=== PATIENT | female | born 1950 | race Caucasian/White ===

== ENCOUNTER → 2017-01-17 | Outpatient (CLI) | payer MEDICAID | LOC: CIMAGING 10:59 | PROVIDERS: ATTEND Internal Medicine | DX: Z12.31 Encounter for screening mammogram for malignant neoplasm of breast (principal); Z85.3 Personal history of malignant neoplasm of breast | CPT/HCPCS: G0202 ==

== ENCOUNTER 2017-04-20 13:39 | Emergency (ER) | payer OTHER, MEDICAID ==
[2017-04-20] MEDS ORDERED: ASPIRIN 81 MG CHEWABLE TAB PO ONE (13:47)
--- NOTE | 2017-04-20 13:54 | CPEKG ---
Heart Rate: 68 RR Interval: 882 P-R Interval: 156 QRSD Interval: 86 QT Interval: 392 QTC Interval: 417 P [place]: 44 QRS [place]: 39 T Wave [place]: 23 EKG Severity - NORMAL ECG - EKG Impression: SINUS RHYTHM Electronically Signed By: Shawn Segura 20-Apr-2017 15:20:40
[2017-04-20 13:58] VITALS: TEMP 97.9
[2017-04-20 14:21] LABS: % IMMATURE GRANULYOCYTES 0.1 % (0.0-1.1); ABSOLUTE IMMATURE GRANULOCYTES 0.01 10^3/uL (0.00-0.10); ADD DIFF? NO; ADD MORPH? NO; ADD SCAN? NO; ATYPICAL LYMPHOCYTE FLAG 0 (0-99); FRAGMENT RBC FLAG 0 (0-99); HEMOGLOBIN 13.5 g/dL (12.6-16.3); LEFT SHIFT FLG 0 (0-99); LIPEMIA HEMOLYSIS FLAG 90 (0-99); MEAN CELL HEMOGLOBIN CONCENTR. 33.8 g/dL (32.4-36.7); MEAN CELL VOLUME 82.8 fL (81.5-99.8); PLATELET CLUMPS FLAG 0 (0-99); PLATELET COUNT 318 10^3/uL (150-400); RED BLOOD CELL COUNT 4.83 10^6/uL (4.18-5.33); RED CELL DISTRIBUTION WIDTH 13.2 % (11.5-15.2)
[2017-04-20 14:38] LABS: ALANINE AMINOTRANSFERASE 33 IU/L (9-52); ALBUMIN 4.1 g/dL (3.5-5.0); ALKALINE PHOSPHATASE 76 IU/L (38-126); ANION GAP 11 mEq/L (8-16); ASPARTATE AMINOTRANSFERASE 30 IU/L (14-46); BILIRUBIN,TOTAL 1.1 mg/dL (0.1-1.4); BILIRUBIN-CONJUGATED 0.3 mg/dL (0.0-0.5); BILIRUBIN-UNCONJUGATED 0.8 mg/dL (0.0-1.1); CALCIUM 9.5 mg/dL (8.5-10.4); CARBON DIOXIDE 22 mEq/l (22-31); CHLORIDE 108 mEq/L (97-110); CREATININE 0.7 mg/dL (0.6-1.0); GLOMERULAR FILTRATION RATE > 60; GLUCOSE 89 mg/dL (70-100); POTASSIUM 3.9 mEq/L (3.5-5.2); SODIUM 141 mEq/L (134-144); TOTAL PROTEIN 6.6 g/dL (6.3-8.2)
[2017-04-20 14:44] LABS: TROPONIN I < 0.012 ng/mL (0.000-0.034)
[2017-04-20 14:54] VITALS: RESP 16
--- NOTE | 2017-04-20 15:10 | EDPHY ---
H & P Stated Complaint: cp x2h Time Seen by Provider: 04/20/17 13:46 HPI/ROS: This patient complains of chest pain 2 hours prior to arrival described as a feeling of an ache substernal location nonradiating. The incident occurred while she was driving. Peak intensity 5/10. Symptoms lasted for approximately 90 minutes and resolved prior to arrival. She also reports having min sharp pains in her epigastrium over the past few days that seem unrelated to eating, nonradiating and mild intensity. Finally, she reports that she had right-sided mandible pain near the TMJ this morning that she attributes to her bruxism. She reports she frequently has similar pains. The patient admits work related stress recently and associated fatigue. She reports no exacerbating factors for her symptoms. Again currently, no chest pain. She drove herself here by private vehicle for further evaluation. ROS: Constitutional: No fevers or chills HEENT: No URI symptoms or other complaints Pulmonary: No cough. She has chronic mild dyspnea unchanged Cardiovascular: She denies any heart palpitations. She has no lower extremity swelling GI: No nausea vomiting. No belly pain today. : No complaints Endocrine: No diaphoresis Complete review of symptoms is otherwise negative. Source: Patient Exam Limitations: No limitations - Medical/Surgical History Hx Asthma: No Hx Chronic Respiratory Disease: No Hx Diabetes: No Hx Cardiac Disease: No Hx Renal Disease: No Hx Cirrhosis: No Hx Alcoholism: No Hx HIV/AIDS: No Hx Splenectomy or Spleen Trauma: No Other PMH: Breast CA on left. 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 - Physical Exam Exam: General Appearance: Alert, no distress. Eyes: Pupils equal and round no pallor or injection. ENT, Mouth: Mucous membranes moist. Respiratory: There are no retractions, lungs are clear to auscultation. Cardiovascular: Regular rate and rhythm. No murmur gallop rub. No chest wall tenderness. Gastrointestinal: Abdomen is soft and nontender, no masses, bowel sounds normal. No epigastric tenderness. No organomegaly Neurological: GCS of 15 Skin: Warm and dry, no rashes. Musculoskeletal: Neck is supple nontender. Extremities are symmetrical, full range of motion. Psychiatric: Mood and affect are normal DIFFERENTIAL DIAGNOSIS: After history and physical exam differential diagnosis was considered for GERD, myocardial ischemic disease, pneumonia, pneumothorax, musculoskeletal pain, anxiety, biliary disease Constitutional: Initial Vital Signs Temperature (C) 36.6 C 04/20/17 13:45 Heart Rate 78 04/20/17 13:45 Respiratory Rate 14 04/20/17 13:45 Blood Pressure 117/73 04/20/17 13:45 O2 Sat (%) 95 04/20/17 13:45 O2 Delivery Mode Room Air Allergies/Adverse Reactions: sulfamethoxazole [From Bactrim] Allergy (Intermediate, Verified 04/24/16 10:37) Hives trimethoprim [From Bactrim] Allergy (Intermediate, Verified 04/24/16 10:37) Hives Home Medications: Medication Instructions Recorded Cholecalciferol Vit D3 [Vitamin D3 1,000 units PO DAILY 04/24/16 (*)] Glucosamine Sulfate Dipot Chlr 1,000 mg PO DAILY 04/24/16 [Glucosamine] MAGNESIUM [Magnesium Oxide 200 mg] 1 tab PO Q2D 04/24/16 Multivitamins [Multivitamin (*)] 1 each PO DAILY 04/24/16 Vitamin B Complex [B Complex] 1 each PO DAILY 04/24/16 guaiFENesin [Mucinex 600 MG (*)] 1,200 mg PO BID #0 tab.er 04/25/16 Medical Decision Making - Diagnostics EKG Interpretation: 12 lead EKG performed shortly after arrival indication chest pain Performed at 1:51 p.m. Sinus rhythm at 68 Intervals: Normal throughout [place]: Normal throughout ST segments: Normal throughout Overall assessment normal EKG Imaging Results: Chest x-ray PA and lateral: Normal by my interpretation Imaging: I viewed and interpreted images myself ED Course/Re-evaluation: IV, aspirin, monitor Patient remained asymptomatic while here in the emergency department Review of her labs reveals normal CBC, chemistries, LFTs and troponin. Discussion: Patient's chest pain of unclear etiology but no red flag findings today and workup. The although she has risk factor axis family history, she has currently no chest pain, normal EKG and normal troponin. Plan is for the patient to follow up with Cardiology as an outpatient. She understands the need to return to the emergency department should she have any significant recurrence of chest pain or additional symptoms. At the time discharge patient is comfortable with normal vital signs and no 5 physical discomfort - Data Points Laboratory Results: Laboratory Results 04/20/17 14:07 04/20/17 14:07 04/20/17 04/20/17 14:07 14:07 WBC 6.67 10^3/uL 10^3/uL (3.80-9.50) RBC 4.83 10^6/uL 10^6/uL (4.18-5.33) Hgb 13.5 g/dL g/dL (12.6-16.3) Hct 40.0 % % (38.0-47.0) MCV 82.8 fL fL (81.5-99.8) MCH 28.0 pg pg (27.9-34.1) MCHC 33.8 g/dL g/dL (32.4-36.7) RDW 13.2 % % (11.5-15.2) Plt Count 318 10^3/uL 10^3/uL (150-400) MPV 10.0 fL fL (8.7-11.7) Neut % (Auto) 56.9 % % (39.3-74.2) Lymph % (Auto) 34.0 % % (15.0-45.0) [place] % (Auto) 7.3 % % (4.5-13.0) Eos % (Auto) 1.3 % % (0.6-7.6) Baso % (Auto) 0.4 % % (0.3-1.7) Nucleat RBC Rel Count 0.0 % % (0.0-0.2) Absolute Neuts (auto) 3.78 10^3/uL 10^3/uL (1.70-6.50) Absolute Lymphs (auto) 2.27 10^3/uL 10^3/uL (1.00-3.00) Absolute Monos (auto) 0.49 10^3/uL 10^3/uL (0.30-0.80) Absolute Eos (auto) 0.09 10^3/uL 10^3/uL (0.03-0.40) Absolute Basos (auto) 0.03 10^3/uL 10^3/uL (0.02-0.10) Absolute Nucleated RBC 0.00 10^3/uL 10^3/uL (0-0.01) Immature Gran % 0.1 % % (0.0-1.1) Immature Gran # 0.01 10^3/uL 10^3/uL (0.00-0.10) Sodium 141 mEq/L mEq/L (134-144) Potassium 3.9 mEq/L mEq/L (3.5-5.2) Chloride 108 mEq/L mEq/L (97-110) Carbon Dioxide 22 mEq/l mEq/l (22-31) Anion Gap 11 mEq/L mEq/L (8-16) BUN 15 mg/dL mg/dL (7-23) Creatinine 0.7 mg/dL mg/dL (0.6-1.0) Estimated GFR > 60 Glucose 89 mg/dL mg/dL (70-100) Calcium 9.5 mg/dL mg/dL (8.5-10.4) Total Bilirubin 1.1 mg/dL mg/dL (0.1-1.4) Conjugated Bilirubin 0.3 mg/dL mg/dL (0.0-0.5) Unconjugated Bilirubin 0.8 mg/dL mg/dL (0.0-1.1) AST 30 IU/L IU/L (14-46) ALT 33 IU/L IU/L (9-52) Alkaline Phosphatase 76 IU/L IU/L (38-126) Troponin I < 0.012 ng/mL ng/mL (0.000-0.034) Total Protein 6.6 g/dL g/dL (6.3-8.2) Albumin 4.1 g/dL g/dL (3.5-5.0) Medications Given: Discontinued Medications Aspirin (Aspirin) 324 mg PO EDNOW ONE Stop: 04/20/17 13:48 Last Admin: 04/20/17 14:02 Dose: Not Given Departure - Departure Disposition: Home, Routine, Self-Care Clinical Impression: Chest pain Qualifiers: Chest pain type: other chest pain Qualified Code(s): R07.89 - Other chest pain Condition: Good Instructions: Chest Pain (ED) Additional Instructions: Diagnosis: Chest pain Plan: Consider antacid such as Maalox if you have any recurrent episodes. Follow up with Dr. Fang-tip finisher for further evaluation Return emergency department if you have any significant chest pain last more than a few minutes or additional symptoms. Referrals: Melanie Alba MD [Primary Care Provider] - As per Instructions Hussein Fang MD [Medical Doctor] - As per Instructions
[2017-04-20 15:43] VITALS: BP 120/82; PULSE 68; O2SAT 97
== END 2017-04-20 15:20 | disposition home or self-care (01) ==
LOC: CED 13:39
DX: R07.89 Other chest pain (principal); Z85.3 Personal history of malignant neoplasm of breast; Z87.891 Personal history of nicotine dependence
CPT/HCPCS: 71020-PO; 80048-PO; 80076-PO; 84484-PO; 85025-PO